=== PATIENT | male | born 1990 | race Caucasian/White ===

== ENCOUNTER 2021-04-12 16:57 | Emergency (ER) | payer SELFPAY ==
[~2021-04-12] VITALS: Ht 175.3 cm; Wt 93.0 kg
[2021-04-12] MEDS ORDERED: TETANUS/DIPHTHERIA TOX ADULT 0.5 ML SYR IM ONE (17:30)
[2021-04-12] MEDS ORDERED: HYDROCODONE/APAP 7.5MG-325MG 1 EA TAB PO ONE (18:30)
[2021-04-12] MEDS ORDERED: HYDROCODON-ACE1 EAC9 PO (18:33)
[2021-04-12] MEDS ORDERED: CEPHALEXIN500 MG PO (18:33)
== END 2021-04-12 18:51 | disposition home or self-care (01) ==
LOC: ER 17:33
DX: S61.312A Laceration without foreign body of right middle finger with damage to nail, initial encounter (principal); W31.9XXA Contact with unspecified machinery, initial encounter; Y92.9 Unspecified place or not applicable; Z23 Encounter for immunization
CPT/HCPCS: 90471; 90714; 99283

== ENCOUNTER 2021-04-13 10:48 | Emergency (ER) | payer SELFPAY ==
[~2021-04-13] VITALS: Ht 175.3 cm; Wt 99.8 kg
[~2021-04-13 10:48] MED LIST: CEPHALEXIN500 MG PO; HYDROCODON-ACE1 EAC9 PO
[2021-04-13] MEDS ORDERED: SODIUM CHLORIDE 0.9% 1000ML 1,000 ML IV STA (11:10)
[2021-04-13 13:21] VITALS: BP 117/71
== END 2021-04-13 13:31 | disposition home or self-care (01) ==
LOC: ER 10:51
DX: R55 Syncope and collapse (principal)
CPT/HCPCS: 36415; 82948; 99284; J7030